=== PATIENT | male | born 1955 | race Caucasian/White ===

== ENCOUNTER 2020-12-24 08:16 | Outpatient (REF) | payer MEDICARE, SELFPAY ==
[2020-12-24 11:02] LABS: MANUAL DIFF FLAG NO
[2020-12-24 11:13] LABS: Glucose Urine UA NEG (NEG); Leukocyte Esterase Urine NEG (NEG); Nitrite Urine NEG (NEG); PH 6.5 (5.0-8.0); Specific Gravity - Urine 1.025 (1.005-1.025); Urine Blood NEG (NEG); Urine Ketones NEG (NEG); Urine Protein NEG (NEG-TRACE)
[2020-12-24 11:14] LABS: Basophils Absolute Auto 0.1 X10*3/uL (0.0-0.2); Eosinophils Absolute Auto 0.2 X10*3/uL (0.0-0.4); Eosinophils Percent Auto 2.9 % (0-4); Hematocrit 45.5 % (42-52); Hemoglobin 16.1 g/dl (14.0-18.0); Imm Gran Abs Auto 0.02 X10*3/uL (0.00-0.03); Imm Gran Pct Auto 0.3 % (0.0-0.4); Lymphocytes Absolute Auto 1.3 X10*3/uL (1.2-4.9); Lymphocytes Percent Auto 21.9 % (20-40); Mean Corpuscular HGB Conc 35.4 g/dl (31.0-36.0); Mean Corpuscular Hemoglobin 33.3 pg (27.0-33.0); Mean Platelet Volume 11.1 fL (9.4-12.4); Monocytes Absolute Auto 0.5 X10*3/uL (0.1-1.2); Monocytes Percent Auto 8.9 % (2-11); Neutrophils Absolute Auto 3.8 X10*3/uL (2.0-8.3); Platelet Count 225 X10*3/uL (160-400); Red Blood Count 4.84 X10*6/uL (4.60-5.80); Red Cell Distribution Width 11.7 % (11.0-16.0); White Blood Count 5.9 X10*3/uL (4.8-10.8)
[2020-12-24 11:15] LABS: Appearance Urine CLEAR; Color Urine YELLOW
[2020-12-24 11:33] LABS: Alanine Aminotransferase 29 U/L (0-40); Albumin Level 4.8 g/dL (3.5-5.0); Alkaline Phosphatase 41 U/L (39-117); Anion Gap 16 (12-20); Aspartate Amino Transferase 33 U/L (5-37); Bilirubin Total 1.2 mg/dL (0.0-1.0); Blood Urea Nitrogen 14 mg/dL (9-16); Calcium 9.7 mg/dL (8.4-10.2); Carbon Dioxide 25 mmol/L (22-29); Chloride 102 mmol/L (96-108); Cholesterol 238 mg/dL; Estimated Glomerular Filt Rate > 60; Glucose Fasting 109 mg/dL (60-99); HDL Cholesterol 68 mg/dL; LDL Cholesterol Calculated 146 mg/dl; Potassium 4.4 mmol/L (3.3-5.1); Sodium 139 mmol/L (135-145); Total Protein 7.5 g/dL (6.5-8.0); Triglycerides 124 mg/dL
== END 2020-12-24 08:17 | disposition home or self-care (01) ==
LOC: HO.HMGCLDS 08:16
PROVIDERS: PCP Internal Medicine; Visit Provider Internal Medicine
DX: E78.00 Pure hypercholesterolemia, unspecified (principal); I10 Essential (primary) hypertension
CPT/HCPCS: 36415; 80053; 80061; 81003; 85025

== ENCOUNTER 2021-04-16 07:59 | Outpatient (REF) | payer MEDICARE, SELFPAY ==
[2021-04-16 11:38] LABS: Estimated Average Glucose 97 mg/dL
[2021-04-16 12:04] LABS: Alanine Aminotransferase 24 U/L (0-40); Albumin Level 4.5 g/dL (3.5-5.0); Alkaline Phosphatase 41 U/L (39-117); Anion Gap 14 (12-20); Aspartate Amino Transferase 34 U/L (5-37); Bilirubin Total 1.2 mg/dL (0.0-1.0); Blood Urea Nitrogen 16 mg/dL (9-16); Calcium 9.4 mg/dL (8.4-10.2); Carbon Dioxide 24 mmol/L (22-29); Chloride 104 mmol/L (96-108); Cholesterol 208 mg/dL; Estimated Glomerular Filt Rate > 60; Glucose Fasting 94 mg/dL (60-99); HDL Cholesterol 63 mg/dL; LDL Cholesterol Calculated 130 mg/dl; Potassium 4.2 mmol/L (3.3-5.1); Sodium 138 mmol/L (135-145); Total Protein 6.9 g/dL (6.5-8.0); Triglycerides 78 mg/dL
== END 2021-04-16 08:00 | disposition home or self-care (01) ==
LOC: HO.HMGCLDS 07:59
PROVIDERS: PCP Internal Medicine; Visit Provider Internal Medicine
DX: E78.00 Pure hypercholesterolemia, unspecified (principal); I10 Essential (primary) hypertension; R73.03 Prediabetes
CPT/HCPCS: 36415; 80053; 80061; 83036

== ENCOUNTER 2021-06-19 08:14 | Outpatient (REF) | payer MEDICARE, SELFPAY ==
[2021-06-19 11:05] LABS: PSA,Total (Free>4and<10) 2.92 ng/mL (0.00-4.00)
== END 2021-06-19 08:15 | disposition home or self-care (01) ==
LOC: HO.10HDL 08:14
PROVIDERS: Visit Provider Urology
DX: Z12.5 Encounter for screening for malignant neoplasm of prostate (principal); R97.20 Elevated prostate specific antigen [PSA]
CPT/HCPCS: 36415; 84153

== ENCOUNTER → 2021-06-25 08:28 | Outpatient (BNVA) | payer MEDICARE, SELFPAY | PROVIDERS: PCP Internal Medicine; Visit Provider Urology | DX: R97.20 Elevated prostate specific antigen [PSA] (principal); N40.0 Benign prostatic hyperplasia without lower urinary tract symptoms | CPT/HCPCS: Q3014 ==

== ENCOUNTER 2022-06-17 09:36 | Outpatient (REF) | payer MEDICARE, SELFPAY ==
[2022-06-17 12:36] LABS: Prostate Specific Antigen 2.57 ng/mL (<0.05-4.0)
== END 2022-06-17 09:37 | disposition home or self-care (01) ==
LOC: HO.HMGCLDS 09:36
PROVIDERS: PCP Internal Medicine; Visit Provider Urology
DX: Z12.5 Encounter for screening for malignant neoplasm of prostate (principal); N40.1 Benign prostatic hyperplasia with lower urinary tract symptoms; N13.8 Other obstructive and reflux uropathy
CPT/HCPCS: 36415; 84153

== ENCOUNTER → 2022-06-25 08:34 | Outpatient (BNVA) | payer MEDICARE, SELFPAY | PROVIDERS: PCP Internal Medicine; Visit Provider Urology | DX: R97.20 Elevated prostate specific antigen [PSA] (principal); N40.1 Benign prostatic hyperplasia with lower urinary tract symptoms; N13.8 Other obstructive and reflux uropathy | CPT/HCPCS: 51798; 99212 ==

== ENCOUNTER 2022-08-04 08:53 | Outpatient (REF) | payer MEDICARE, SELFPAY ==
[2022-08-04 11:22] LABS: MANUAL DIFF FLAG NO
[2022-08-04 11:27] LABS: Basophils Absolute Auto 0.1 X10*3/uL (0.0-0.2); Basophils Percent Auto 1.3 % (0-2); Eosinophils Absolute Auto 0.1 X10*3/uL (0.0-0.4); Eosinophils Percent Auto 2.4 % (0-4); Hematocrit 44.2 % (42.0-52.0); Hemoglobin 15.5 g/dl (14.0-18.0); Imm Gran Abs Auto 0.02 X10*3/uL (0.00-0.03); Imm Gran Pct Auto 0.4 % (0.0-0.4); Lymphocytes Absolute Auto 1.1 X10*3/uL (1.2-4.9); Lymphocytes Percent Auto 21.1 % (20-40); Mean Corpuscular HGB Conc 35.1 g/dl (31.0-36.0); Mean Corpuscular Hemoglobin 33.1 pg (27.0-33.0); Mean Corpuscular Volume 94.4 fL (80.0-98.0); Mean Platelet Volume 10.8 fL (9.4-12.4); Monocytes Absolute Auto 0.5 X10*3/uL (0.1-1.2); Monocytes Percent Auto 9.5 % (2-11); Neutrophils Absolute Auto 3.5 x10*3/uL (2.0-8.3); Neutrophils Percent Auto 65.3 % (45-73); Platelet Count 209 X10*3/uL (160-400); Red Blood Count 4.68 X10*6/uL (4.60-5.80); White Blood Count 5.4 X10*3/uL (4.8-10.8)
[2022-08-04 12:28] LABS: Alanine Aminotransferase 27 U/L (0-40); Albumin Level 4.7 g/dL (3.5-5.0); Alkaline Phosphatase 40 U/L (39-117); Anion Gap 18 (12-20); Aspartate Amino Transferase 35 U/L (5-37); Bilirubin Total 1.1 mg/dL (0.0-1.0); Blood Urea Nitrogen 14 mg/dL (9-16); Calcium 9.6 mg/dL (8.4-10.2); Carbon Dioxide 23 mmol/L (22-29); Chloride 103 mmol/L (96-108); Cholesterol 212 mg/dL; Estimated Glomerular Filt Rate > 60; Glucose Fasting 96 mg/dL (60-99); HDL Cholesterol 66 mg/dL; LDL Cholesterol Calculated 131 mg/dl; Potassium 4.4 mmol/L (3.3-5.1); Sodium 140 mmol/L (135-145); Total Protein 7.3 g/dL (6.5-8.0); Triglycerides 76 mg/dL
== END 2022-08-04 08:54 | disposition home or self-care (01) ==
LOC: HO.HMGCLDS 08:53
PROVIDERS: PCP Internal Medicine; Visit Provider Internal Medicine
DX: I10 Essential (primary) hypertension (principal); E78.00 Pure hypercholesterolemia, unspecified; N40.0 Benign prostatic hyperplasia without lower urinary tract symptoms
CPT/HCPCS: 36415; 80053; 80061; 85025

== ENCOUNTER 2023-06-10 08:48 | Outpatient (REF) | payer MEDICARE, SELFPAY ==
[2023-06-10 12:59] LABS: Prostate Specific Antigen 2.75 ng/mL (<0.05-4.0)
== END 2023-06-10 08:49 | disposition home or self-care (01) ==
LOC: HO.HMGCLDS 08:48
PROVIDERS: PCP Internal Medicine; Visit Provider Urology
DX: Z12.5 Encounter for screening for malignant neoplasm of prostate (principal); R97.20 Elevated prostate specific antigen [PSA]
CPT/HCPCS: 36415; 84153

== ENCOUNTER 2023-06-24 08:31 | Outpatient (AMB) | payer MEDICARE, SELFPAY ==
--- NOTE | 2023-06-24 08:38 | A.OFFVIS_ITS ---
Intake Intake Visit Reasons: 1Y PSA(set) Intake Note: Patient is Present for Follow Up PSA/PVR Urology Medication: None Antibiotic Allergies: None Blood Thinners: None Pharmacy:[facility] PVR:42ML Allergies No Known Allergies Allergy (Verified 06/24/23 08:40) HPI HPI Comments History of Present Illness Details Good is a pleasant male. He is a patient of Dr. Harden. He is seen for the following urologic conditions - elevated PSA PSA stable - 2.7 PVR minimal 42 MILO 2+ smooth Will follow p.r.n. 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 follow-up [facility] Medical History HTN (hypertension) Elevated PSA BPH loc w urin obs/LUTS Surgical History History of surgery Review of Systems Const Denies chills and Denies fever(s) Card Reports no additional complaints and Denies syncope Resp Denies cough GI Denies abdominal pain and Denies heartburn Reports as per HPI and Denies change in libido Neuro Denies syncope Psych Denies change in libido Endo Denies change in libido Physical Exam Const General: cooperative, healthy appearing, comfortable and no acute distress Orientation/consciousness: patient oriented x3 HEENT Face and sinus: Yes normal facial exam Mouth: moist mucous membranes Neck Neck: Yes normal visual inspection, Yes full ROM and Yes trachea midline Chest Chest palpation & inspection: normal inspection of the chest Resp Effort & Inspection: normal respiratory effort, able to speak in complete sentences and no respiratory distress GI Inspection: Yes normal to inspection Back/Spine/Pelvis Cervical Spine: normal cervical lordosis Thoracic/Lumbar Spine: thoracic and lumbar spine normal to inspection Skin General skin exam: no rashes or lesions noted Neuro General: patient oriented x3, gait normal, tone normal and moves all extremities Extrem General: Yes normal to inspection and Yes capillary refill normal Office Procedures Post Void Residual Post Residual Void Post Void Residual (PVR): 42 20415-Srva Void Residual by ultrasound Assessment & Plan Assessment & Plan (1) BPH loc w urin obs/LUTS: Code(s): N40.1 - Benign prostatic hyperplasia with lower urinary tract symptoms (2) Elevated PSA: Code(s): R97.20 - Elevated prostate specific antigen [PSA] Plan P.r.n. follow-up Orders: Orders AMB Post Void Residual by ultrasound Today N40.1 - Benign prostatic hyperplasia with lower urinary tract symptoms Patient Instructions: Imaging studies, laboratory and physical exam results were discussed and reviewed in detail. No major barriers to patient understanding were identified. An opportunity to ask questions regarding the treatment plan was provided. All questions were answered. The patient expressed understanding and agreement with the above treatment plan. The patient is aware they should contact our office by phone for worsening of their current condition or the appearance of new urologic symptoms. Compliance is encouraged with any medications and followup testing that is ordered. It is a privilege to participate in the urologic care of your patient. If you have any questions or concerns regarding treatment for the above conditions, or other urologic issues, please do not hesitate to contact me. The office telephone contact is [phone]. This note is constructed using voice recognition software. While every effort has been made to ensure accuracy accounting office manager errors may have been included. Yours sincerely, Dr Andrea Omalley MD, [facility] - Urology Providers of Expert, Compassionate Care for the Genitourinary System Coding Level of Care Code Est Pt Level 4 (41401) Diagnoses BPH loc w urin obs/LUTS N40.1 Elevated PSA R97.20 CPT Codes Post Residual Void - PVR CPT Code: 88996-Ijae Void Residual by ultrasound ([id number])
== END 2023-06-24 09:20 | disposition home or self-care (01) ==
PROVIDERS: PCP Internal Medicine; Visit Provider Urology
DX: N40.1 Benign prostatic hyperplasia with lower urinary tract symptoms (principal); R97.20 Elevated prostate specific antigen [PSA]
CPT/HCPCS: 99214

== ENCOUNTER → 2023-06-24 08:31 | Outpatient (BNVA) | payer MEDICARE, SELFPAY | PROVIDERS: Visit Provider Urology | DX: N40.1 Benign prostatic hyperplasia with lower urinary tract symptoms (principal); R97.20 Elevated prostate specific antigen [PSA] | CPT/HCPCS: 51798; 99212 ==

== ENCOUNTER 2023-07-01 08:36 | Outpatient (REF) | payer MEDICARE, SELFPAY ==
[2023-07-01 11:26] LABS: MANUAL DIFF FLAG NO
[2023-07-01 11:39] LABS: Basophils Absolute Auto 0.1 X10*3/uL (0.0-0.2); Basophils Percent Auto 1.3 % (0-2); Eosinophils Absolute Auto 0.2 X10*3/uL (0.0-0.4); Eosinophils Percent Auto 3.8 % (0-4); Hemoglobin 15.4 g/dl (14.0-18.0); Imm Gran Abs Auto 0.02 X10*3/uL (0.00-0.03); Imm Gran Pct Auto 0.4 % (0.0-0.4); Lymphocytes Absolute Auto 1.1 X10*3/uL (1.2-4.9); Lymphocytes Percent Auto 19.9 % (20-40); Mean Corpuscular Hemoglobin 33.3 pg (27.0-33.0); Mean Platelet Volume 10.8 fL (9.4-12.4); Monocytes Absolute Auto 0.4 X10*3/uL (0.1-1.2); Monocytes Percent Auto 7.4 % (2-11); Neutrophils Absolute Auto 3.7 x10*3/uL (2.0-8.3); Neutrophils Percent Auto 67.2 % (45-73); Platelet Count 208 X10*3/uL (160-400); Red Blood Count 4.63 X10*6/uL (4.60-5.80); Red Cell Distribution Width 12.2 % (11.0-16.0); White Blood Count 5.5 X10*3/uL (4.8-10.8)
[2023-07-01 12:08] LABS: Alanine Aminotransferase 21 U/L (0-40); Albumin Level 4.5 g/dL (3.5-5.0); Alkaline Phosphatase 41 U/L (39-117); Anion Gap 12 (12-20); Aspartate Amino Transferase 33 U/L (5-37); Bilirubin Total 0.8 mg/dL (0.0-1.0); Blood Urea Nitrogen 13 mg/dL (9-16); Calcium 9.6 mg/dL (8.4-10.2); Carbon Dioxide 26 mmol/L (22-29); Chloride 105 mmol/L (96-108); Cholesterol 198 mg/dL (<200); Estimated Glomerular Filt Rate > 60; Glucose Random 94 mg/dL (60-115); HDL Cholesterol 69 mg/dL (>40); LDL Cholesterol Calculated 114 mg/dL (<100); Potassium 4.9 mmol/L (3.3-5.1); Sodium 138 mmol/L (135-145); Total Protein 7.4 g/dL (6.5-8.0); Triglycerides 77 mg/dL (<150)
== END 2023-07-01 08:37 | disposition home or self-care (01) ==
LOC: HO.CHCLDS 08:36
PROVIDERS: Visit Provider Internal Medicine
DX: I10 Essential (primary) hypertension (principal); E78.00 Pure hypercholesterolemia, unspecified; R35.1 Nocturia; Z12.5 Encounter for screening for malignant neoplasm of prostate
CPT/HCPCS: 36415; 80053; 80061; 84153; 85025

== ENCOUNTER 2023-07-21 07:55 | Day surgery (SDC) | payer MEDICARE, SELFPAY ==
[2023-07-17 10:38] VITALS: BMI 26.8
--- NOTE | 2023-07-20 09:22 | P.CONAN_ITS ---
Documented by User: Jaleesa Armijo NP 07/20/23 09:23 HPI - Anesthesia Eval Consult details Narrative: 68yo M for Colonoscopy PMFSH Active Problems Active Problems: All Active Problems (Updated 06/25/21 @ 08:45 by Andrea Omalley MD) Elevated PSA (Acute) BPH loc w urin obs/LUTS (Acute) Past Medical History Medical History HTN (hypertension) Elevated PSA BPH loc w urin obs/LUTS Surgical History Surgical History Hx of Achilles tendon repair H/O colonoscopy History of surgery Social History Social History Patient Tobacco Use Status: Former Tobacco user Quit Date: >10 years ago Tobacco use type: Cigarette Advance Directives: No Advance Directives Information Provided: Yes Meds Allergies Allergy/AdvReac Type Severity Reaction Status Date / Time No Known Allergies Allergy Verified 06/24/23 08:40 Home Medications Medication Instructions Recorded Confirmed Last Taken Type lisinopril 10 mg tablet 10 mg PO DAILY 06/25/21 07/17/23 Unknown History nifedipine 30 mg tablet,extended 30 mg PO DAILY 06/23/22 07/17/23 Unknown History release 24 hr cholecalciferol (vitamin D3) 25 25 mcg PO DAILY 07/17/23 07/17/23 Unknown History mcg (1,000 unit) capsule (Vitamin D3) Exam Exam Date and Time: July 20, 2023 0922 Height,Weight and Vital Signs: Height 5 ft 10 in Weight 84.822 kg Pertinent Lab Results Pertinent Lab Results: Laboratory Tests 07/01/23 07/01/23 07/01/23 08:45 08:48 08:48 WBC 5.5 Hgb 15.4 Hct 44.0 Plt Count 208 Sodium 138 Potassium 4.9 Chloride 105 Carbon Dioxide 26 BUN 13 Creatinine 0.94 Assessment and Plan Assessment Anesthesia Assessment: Chart Reviewed Documented by User: Janny Ace MD 07/21/23 09:05 PMFSH Active Problems Active Problems: All Active Problems (Updated 07/21/23 @ 08:08 by Janny Ace MD) Elevated PSA (Acute) BPH loc w urin obs/LUTS (Acute) HTN Denies STEVE symptoms Past Medical History Medical History HTN (hypertension) Elevated PSA BPH loc w urin obs/LUTS Family History Family history of problems with anesthesia: No Surgical History Surgical History Hx of Achilles tendon repair H/O colonoscopy History of surgery History of Problems with Anesthesia: No Social History Social History Patient Tobacco Use Status: Former Tobacco user Quit Date: >10 years ago Tobacco use type: Cigarette Advance Directives: No Advance Directives Information Provided: Yes Meds Allergies Allergy/AdvReac Type Severity Reaction Status Date / Time No Known Allergies Allergy Verified 06/24/23 08:40 Home Medications Medication Instructions Recorded Confirmed Last Taken Type lisinopril 10 mg tablet 10 mg PO DAILY 06/25/21 07/17/23 Unknown History nifedipine 30 mg tablet,extended 30 mg PO DAILY 06/23/22 07/17/23 Unknown History release 24 hr cholecalciferol (vitamin D3) 25 25 mcg PO DAILY 07/17/23 07/17/23 Unknown History mcg (1,000 unit) capsule (Vitamin D3) Exam Height,Weight and Vital Signs: Height 5 ft 10 in Weight 84.822 kg Vital Signs Temp Pulse Resp BP Pulse Ox O2 Del Method 07/21/23 08:21 97.3 F 66 18 166/92 H 98 Room Air Airway Mallampati Class: II TM Dist: >3cm Neck ROM: Full Loose/Missing/Broken Teeth: No (Crowns/caps intact. Denies broken, loose, jumana ng teeth) Heart: RRR Lungs: CTAB Assessment and Plan Assessment Anesthesia Assessment: Anesthesia Plan Discussed Final Anesthetic Review Family History of Problems with Anesthesia: No History of Problems with Anesthesia: No NPO: Yes ASA Class: II Final Preanesthetic Review: No Changes in Pt Med Stat, Meds/Allgs Chart Reviewed, Consent Obtained/Reviewed and Anes Risks/Benef Reviewed Patient Risk: Low Procedure Risk: Low Assessment/Block/Sedation in SS: Assess/Block/Sedation-SS Anesthetic Plan Anesthetic Plan: MAC: Disposition: Standard PACU
[2023-07-21 08:21] VITALS: BP 166/92; PULSE 66; RESP 18; TEMP 36.3; O2SAT 98
[2023-07-21] MEDS: Lactated Ringers 1,000 ML 100 ML IVCONT (08:26)
--- NOTE | 2023-07-21 08:35 | MHC.SHP ---
Pre-Procedural Eval Section A Date of Service: 07/21/23 Section B Chief Complaint: Encounter for screening for malignant neoplasm Details of Present Illness: see H&P Relevant Family History (Specify if Yes): Yes Relevant Social History: Alcohol Use Present Medications: see Short Stay Collaborative assessment Medical History: No relevant PMH History of Previous Operations: No relevant previous surgery Allergies: Allergies Allergy/AdvReac Type Severity Reaction Status Date / Time No Known Allergies Allergy Verified 06/24/23 08:40 Review of Systems Sugical H&P ROS: Negative: Constitution, Cardiovascular, Respiratory, Neurological, Psychiatric, Hem-Onc, Allergic/Immunologic, Gastrointestinal, Genitourinary, Musculoskeletal, Integumentary, Endocrine and Eyes/Ears/Nose/Throat Exam Surgical H&P Exam: Normal: HEENT, Normal: Heart, Normal: Lungs, Normal: Extremities, Normal: Abdomen, Normal: Skin and Normal: Neurological Plan Diagnosis/Plan: Unchanged I have reviewed the history and physical and performed a pertinent physical examination on my patient. No changes have occurred unless specified. Time Spent With Patient Time: Total time managing care of this patient today ____ minutes.
--- NOTE | 2023-07-21 09:11 | PM.OP ---
Brief Operative Note Date of Service: 07/21/23 Pre-op diagnosis: screening Post-op diagnosis: same Procedure: colonoscopy Surgeon: Martin Hernandez MD Anesthesia: MAC Was an Engineer Third Assistant used for this Procedure?: No Estimated blood loss (mL): 5 Pathology: other Condition: stable Disposition: PACU
[2023-07-21 09:15] VITALS: BP 107/74; PULSE 77; RESP 16; TEMP 36.6
[2023-07-21 09:34] VITALS: BP 148/66; PULSE 62; RESP 16; TEMP 36.6; O2SAT 100
--- NOTE | 2023-07-21 09:35 | OP_ITS ---
DATE OF SERVICE: 07/21/2023 SURGEON: Martin Hernandez MD INDICATIONS: Colon cancer screening and family history of colon cancer. PREOPERATIVE DIAGNOSIS: POSTOPERATIVE DIAGNOSIS: PROCEDURE PERFORMED: Colonoscopy to the terminal ileum with snare polypectomy and biopsy. ESTIMATED BLOOD LOSS: COMPLICATIONS: ANESTHESIA: Monitored anesthesia care. ASSISTANTS: SPECIMENS: DESCRIPTION OF PROCEDURE: A history and physical performed. The risks and benefits of the procedure were explained to the patient. Informed consent was obtained. The patient was placed in the left lateral decubitus position. A digital rectal exam was performed and was found to be normal. The Olympus pediatric video colonoscope was introduced into the rectum and advanced to the cecum. The cecum was identified by transillumination, palpation, and identification of ileocecal valve. Examination was performed. The scope was removed. He tolerated the procedure well and was taken to recovery room in stable condition. FINDINGS: The terminal ileum was examined and appeared normal. The visualized colonic mucosa was normal. The quality of prep was good. Three polyps were identified and removed with a combination of snare and biopsy forceps. All were less than 10 mm. These were located at the appendiceal orifice at 55 cm and at 40 cm. There was mild sigmoid diverticulosis. Retroflexed examination showed moderate-sized internal hemorrhoids. IMPRESSION: Colon polyps. RECOMMENDATION: Follow up the biopsy results. MD SEVEN Cortez/YUMIKO / [id number]
== END 2023-07-21 10:24 | disposition home or self-care (01) ==
PROVIDERS: PCP Internal Medicine; Visit Provider Internal Medicine Gastroenterology
PROC: 0DJD8ZZ Inspection of Lower Intestinal Tract, Via Natural or Artificial Opening Endoscopic (ICD-10-PCS; CPT 45378; principal; 2023-07-21 09:00)
DX: Z12.11 Encounter for screening for malignant neoplasm of colon (principal); D12.5 Benign neoplasm of sigmoid colon; K63.5 Polyp of colon; K57.30 Diverticulosis of large intestine without perforation or abscess without bleeding; K64.8 Other hemorrhoids; Z86.010 Personal history of colon polyps; Z80.0 Family history of malignant neoplasm of digestive organs; I10 Essential (primary) hypertension; N40.1 Benign prostatic hyperplasia with lower urinary tract symptoms
CPT/HCPCS: 45380; 45385; 88305

== ENCOUNTER 2024-08-23 08:18 | Outpatient (REF) | payer MEDICARE, SELFPAY ==
[2024-08-23 09:58] LABS: MANUAL DIFF FLAG NO
[2024-08-23 10:06] LABS: Basophils Absolute Auto 0.1 X10*3/uL (0.0-0.2); Eosinophils Absolute Auto 0.2 X10*3/uL (0.0-0.4); Eosinophils Percent Auto 3.5 % (0-4); Hemoglobin 15.1 g/dl (14.0-18.0); Imm Gran Abs Auto 0.02 X10*3/uL (0.00-0.03); Imm Gran Pct Auto 0.3 % (0.0-0.4); Lymphocytes Absolute Auto 1.3 X10*3/uL (1.2-4.9); Mean Corpuscular HGB Conc 35.1 g/dl (31.0-36.0); Mean Corpuscular Hemoglobin 33.1 pg (27.0-33.0); Mean Corpuscular Volume 94.3 fL (80.0-98.0); Monocytes Absolute Auto 0.5 X10*3/uL (0.1-1.2); Monocytes Percent Auto 8.9 % (2-11); Neutrophils Absolute Auto 3.7 x10*3/uL (2.0-8.3); Neutrophils Percent Auto 64.3 % (45-73); Platelet Count 202 X10*3/uL (160-400); Red Blood Count 4.56 X10*6/uL (4.60-5.80); White Blood Count 5.8 X10*3/uL (4.8-10.8)
[2024-08-23 10:30] LABS: Alanine Aminotransferase 28 U/L (0-40); Albumin Level 4.4 g/dL (3.5-5.0); Alkaline Phosphatase 44 U/L (39-117); Anion Gap 12 (12-20); Aspartate Amino Transferase 35 U/L (5-37); Bilirubin Total 0.8 mg/dL (0.0-1.0); Blood Urea Nitrogen 15 mg/dL (9-16); Calcium 9.5 mg/dL (8.4-10.2); Carbon Dioxide 27 mmol/L (22-29); Chloride 105 mmol/L (96-108); Cholesterol 205 mg/dL (<200); Estimated Glomerular Filt Rate > 60; Glucose Fasting 109 mg/dL (60-99); HDL Cholesterol 64 mg/dL (>40); LDL Cholesterol Calculated 124 mg/dL (<100); Potassium 4.5 mmol/L (3.3-5.1); Sodium 139 mmol/L (135-145); Total Protein 7.2 g/dL (6.5-8.0); Triglycerides 88 mg/dL (<150)
[2024-08-23 10:40] LABS: Prostate Specific Antigen 3.07 ng/mL (<0.05-4.0)
== END 2024-08-23 08:19 | disposition home or self-care (01) ==
LOC: HO.HMGCLDS 08:18
PROVIDERS: PCP Internal Medicine; Visit Provider Internal Medicine
DX: I10 Essential (primary) hypertension (principal); Z12.5 Encounter for screening for malignant neoplasm of prostate; R23.3 Spontaneous ecchymoses; E78.00 Pure hypercholesterolemia, unspecified
CPT/HCPCS: 36415; 80053; 80061; 84153; 85025

== ENCOUNTER 2024-11-19 10:02 | Outpatient (REF) | payer MEDICARE, SELFPAY ==
--- OUTSIDE RECORDS SUMMARY | 2024-11-19 10:05 | XMS_ITS ---
Author Organization [facility] Address [address] [place] [id number] Care Team Providers Care Shell Trim Tool Setter Name Role Phone Giuseppe Harden MD Primary Care Provider Martin Santiago Jr Unavailable ALLERGIES No Known Allergies REASON FOR VISIT Patient presents today for a recall colonoscopy MEDICATIONS Medication SIG (Take, Route, Frequency, Duration) Notes Start Date End Date Status Vitamin D3 1000 UNIT 1 capsule Orally On ce a day Active Lisinopril 20 MG 1 tablet Orally Once a day Active NIFEdipine ER 30 MG 1 tablet on an empty stomach Orally Once a day for 30 day(s) Active MiraLax (colon prep) 17 GM/SCOOP mixed with Gatorade or Crystal Light Orally begin at 5:00 p.m. the day before the procedure for 1 day 06/08/2023 Active PROBLEMS Problem Type ICD Code Onset Dates Problem Status W/U Status Risk SNOMED Code Notes Problem Family history of colon cancer (Z80.0) Active confirmed 931181178 Problem Personal history of colonic polyps (Z86.010) Active confirmed 590037971 VITAL SIGNS BMI 26.89 kg/m2 06/08/2023 Blood pressure systolic 000 mm Hg 06/08/20 23 Blood pressure diastolic 00 mm Hg 023 Height 70 in 06/08/2023 Temperature 98.7 degrees Fahrenheit 06/08/20 23 Weight 187.4 lbs 06/08/2023 Encounters Encounter Location Date Provider Diagnosis [facility] [address] [place] [phone] 06/08/2023 Martin Hernandez Jr Colon cancer screening Z12.11 ; Family history of colon cancer Z80.0 and Personal history of colonic polyps Z86.010 ASSESSMENTS Encounter Date Diagnosis Assessment Notes Treatment Notes Treatment Clinical Notes 06/08/2023 Colon cancer screening (ICD-10 - Z12.11) Colonoscopy material was printed 06/08/2023 Family history of colon cancer (ICD-10 - Z80.0) 06/08/2023 Personal history of colonic polyps (ICD-10 - Z86.010) PLAN OF TREATMENT Medication Medication Name Sig Start Date Stop Date Notes MiraLax (colon prep) 17 GM/SCOOP mixed with Gatorade or Crystal Light Orally begin at 5:00 p.m. the day before the procedure for 1 day 06/08/2023 Treatment Notes Assessment Notes Colon cancer screening Colonoscopy mater ial was printed Future Test Test Name Order Date COLONOSCOPY 06/08/2023 Next Appt Details Follow Up: prn, Reason: Progress Notes * Examination Category Sub-Category Detail Notes General Examination GENERAL APPEARANCE: in no ac moriah distress HEAD: normocephalic EYES: sclera non-icteric NECK/THYROID: no lymphadenopathy HEART: S1, S2 normal, no mu rmurs CHEST: normal shape and exp ansion LUNGS: clear to auscultatio n bilaterally ABDOMEN: soft, nontender, non distended, bowel sounds present, no organomegaly SKIN: anicteric EXTREMITIES: no clubbing, cyanosi s, or edema PSYCH: cognitive function i ntact ORAL CAVITY: mucosa moist
--- OUTSIDE RECORDS SUMMARY | 2024-11-19 10:06 | XMS_ITS ---
Author Organization [facility] Address [address] [place] [address] Care Team Providers Care Hospitality Aide Name Role Phone Giuseppe Harden MD Primary Care Provider UnavailMartin Fontana Jr Unavailable [phone] REASON FOR VISIT screening,fam hx colon ca Encounters Encounter Location Date Provider Diagnosis [facility] Outpatient [address] [place] [phone] 07/21/2023 Martin Hernandez Jr Encounter for screening colonoscopy Z12.11 ; Family history of colon cancer Z80.0 and Colon polyps K63.5 ASSESSMENTS Encounter Date Diagnosis Assessment Notes Treatment Notes Treatment Clinical Notes 07/21/2023 Encounter for screening colonoscopy (ICD-10 - Z12.11) 07/21/2023 Family history of colon cancer (ICD-10 - Z80.0) 07/21/2023 Colon polyps (ICD-10 - K63.5) PLAN OF TREATMENT No Information
--- OUTSIDE RECORDS SUMMARY | 2024-11-19 10:06 | XMS_ITS ---
Author Organization [facility] Address [address] [place] [phone] Care Team Providers Care Tie In Hand Name Role Phone Giuseppe Hadren MD Primary Care Provider UnavailMartin Fontana Jr REASON FOR VISIT pathology Encounters Encounter Location Date Provider Diagnosis [facility] [address] [place] [phone] 07/23/2023 Martin Hernandez Jr PLAN OF TREATMENT No Information
[2024-11-19 11:40] LABS: Estimated Average Glucose 97 mg/dL; Hemoglobin A1C 119.2734 umol/L; Total Hemoglobin (HGBA1C) 3868.0973 umol/L
[2024-11-19 11:44] LABS: Anion Gap 12 (12-20); Blood Urea Nitrogen 18 mg/dL (9-16); Calcium 9.9 mg/dL (8.4-10.2); Carbon Dioxide 26 mmol/L (22-29); Chloride 105 mmol/L (96-108); Estimated Glomerular Filt Rate > 60; Glucose Random 76 mg/dL (60-115); Potassium 4.5 mmol/L (3.3-5.1); Sodium 138 mmol/L (135-145)
== END 2024-11-19 10:03 | disposition home or self-care (01) ==
LOC: HO.HMGCLDS 10:02
PROVIDERS: PCP Internal Medicine; Visit Provider Internal Medicine
DX: I10 Essential (primary) hypertension (principal); Z13.1 Encounter for screening for diabetes mellitus
CPT/HCPCS: 36415; 80048; 83036

== ENCOUNTER 2025-02-28 08:01 | Outpatient (AMB) | payer MEDICARE, SELFPAY ==
--- NOTE | 2025-02-28 08:02 | MHC.OFFWIV ---
Intake Vital Signs 02/28/25 08:03 Height 5 ft 10 in Weight 185 lb 8 oz BMI 26.6 BP 134/82 Blood Pressure Location Lt brachial Position Sitting Pulse 99 Pulse Source Pulse Oximeter Temp 99.0 F Temp Source Oral Pulse Oximetry (%) 97 Oxygen Delivery Method Room Air Intake Visit Reasons: EP-neck & chest rash Intake Note: Pt presents to the office today for a rash on his neck and chest x4 days. Pt states it is itchy. Patient Tobacco Use Status: Former Tobacco user Allergies No Known Allergies Allergy (Verified 02/28/25 08:05) HPI HPI Comments History of Present Illness Details History of Present Illness The patient is a 70-year-old male presenting with a rash and itching. Symptoms began over the weekend following outdoor activity, specifically mowing grass, suggesting exposure to irritant plants such as poison milton or poison oak. The rash is described as crusty and bumpy, primarily located on the chest and neck. Attempts to alleviate symptoms using vzcy-xze-oibmsiu treatments have been ineffective. The patient reports that the discomfort is tolerable, but it becomes bothersome, particularly at night. There are no associated symptoms such as fever, chills, or respiratory distress, focusing the differential diagnosis on contact dermatitis. He denies CP, SOB, sore throat, joint pain, n/v/d. He denies new foods, lotions, soaps, detergents, medications, pets, or travel. Physical Exam General: Cooperative, healthy appearing, comfortable, no acute distress and well developed Neck: Normal ROM Respiratory: Normal respiratory effort and able to speak in complete sentences. Clear to auscultation bilaterally Cardiovascular: Regular rate and rhythm. Normal S1 and S2 Skin: Rash present on the neck and chest. Raised, non-tender, crusty clusters noted all over the posterior neck and anterior and posterior chest Patient was informed and verbally consented to the use of an ambient scribe for clinic note documentation during this visit. [facility] Medical History HTN (hypertension) Elevated PSA BPH loc w urin obs/LUTS Surgical History Hx of Achilles tendon repair H/O colonoscopy History of surgery Social History Patient Tobacco Use Status: Former Tobacco user Tobacco use type: Cigarette Review of Systems Const All systems reviewed & are unremarkable except as noted in HPI and below Physical Exam Vital Signs: Last Vital Signs Temp 99.0 F 02/28/25 08:03 Pulse 99 02/28/25 08:03 BP 134/82 02/28/25 08:03 Pulse Ox 97 02/28/25 08:03 Oxygen Delivery Method Room Air 02/28/25 08:03 BMI result Body Mass Index 26.6 Assessment & Plan Assessment & Plan (1) Rash: Code(s): R21 - Rash and other nonspecific skin eruption Plan Most likely poison milton vs poison oak vs contact dermatitis vs allergic reaction Plan The focus will be on managing the contact dermatitis likely caused by poison milton or oak. The treatment regimen includes a course of oral prednisone to manage inflammation and a topical cream for symptomatic control. I have advised adjunctive measures such as calamine lotion and oatmeal baths to help soothe the skin. The patient will obtain these medications at a nearby pharmacy promptly. Instructions were clear regarding sun protection due to possible photosensitivity from skin irritants. Medications: New prednisone see taper instructions 10 mg PO DIRECTED 1 packet 0RF betamethasone dipropionate 0.05% 1 appl topical DAILY 14 days PRN 45 grams 0RF skin irritation Coding Level of Care Code Est Pt Level 3 (28400) Diagnoses Rash R21
[2025-02-28 08:03] VITALS: BP 134/82; PULSE 99; TEMP 37.2; O2SAT 97; BMI 26.6
--- OUTSIDE RECORDS SUMMARY | 2025-02-28 08:04 | XMS_ITS | Patient Health Record ---
Author Organization [facility] Address [address] [place] [phone] Care Team Providers Care Glass Washer And Carrier Name Role Phone Giuseppe Harden MD Primary Care Provider Martin Santiago Jr Unavailable [phone] Allergies No Known Allergies Reason For Referral No Information Medications Medication SIG (Take, Route, Frequency, Duration) Notes [...] the procedure for 1 day 06/08/2023 Active Immunizations Vaccine Route Administration Date Status Comme nts Influenza Unknown 06/11/2022 Administered Problems Problem Type SNOMED Code ICD Code Onset Dates Problem Status W/U Status Risk Notes Problem 484947373 Colon cancer screening (Z12.11) Active confirmed Problem 243055253 Personal history of colonic polyps (Z86.010) Active confirmed Problem 90856515 Encounter for other preprocedural examination (Z01.818) Active confirmed Problem 938516854 Family history o f colon cancer (Z80.0) Active confirmed Plan Of Treatment Future Test Test Name Order Date COLONOSCOPY 11/24/2012 COLONOSCOPY 01/06/2018 COLONOSCOPY 06/08/2023 Insurance Providers Payer Name Payer Address Payer Phone Subscriber Number Group Number Insured Name Patient Relationship to Insured Coverage Start Date Coverage End Date MEDICARE OF [place] [address] [place] [address] [phone] [id number] HPOEBE TAMIKAHENRY Self - patient is the insured [employer] ATT[employer] CLAIMS [address] [place] [address] [id number] TAMIKA SANDHUNIS Self - patient is the insured Medical (General) History Medical History History ICD Code Colonoscopy 06/15, tubular adenoma, five- year followup for family history Zenker diverticulum, 3 mm, on upper GI s eries 10/02 hypertension Hyperlipidemia Surgical History Surgery Date(Month/Year) achilles tendon repair
== END 2025-02-28 08:32 | disposition home or self-care (01) ==
PROVIDERS: PCP Internal Medicine; Visit Provider Physician Assistant Medical
DX: R21 Rash and other nonspecific skin eruption (principal)

== ENCOUNTER → 2025-02-28 08:01 | Outpatient (BNVA) | payer MEDICARE, SELFPAY | PROVIDERS: PCP Internal Medicine; Visit Provider Physician Assistant Medical | DX: R21 Rash and other nonspecific skin eruption (principal) | CPT/HCPCS: 99212 ==

== ENCOUNTER 2025-03-17 09:32 | Outpatient (AMB) | payer MEDICARE, SELFPAY ==
--- NOTE | 2025-03-17 09:09 | MHC.PC.OV ---
Vital Signs 03/17/25 09:10 Height 5 ft 10 in Weight 183 lb BMI 26.3 BP 130/70 Blood Pressure Location Rt brachial Position Sitting Pulse 93 Pulse Source Pulse Oximeter Temp 97.2 F Temp Source Axillary Pulse Oximetry (%) 99 Oxygen Delivery Method Room Air Intake Visit Reasons: Routine Licensed Psychologist Director Required: No Accompanied by: Self / Same As Patient Allergies No Known Allergies Allergy (Verified 03/17/25 09:10) Tobacco use date assessed: 03/17/25 Fall risk assessment: No Falls in past year Last assessed Fall Risk: 03/17/25 Dental Screening Dental Screen Date: 03/17/25 Did you have a dental visit in the last 12 months?: Yes Did you have a dental problem in the last 6 months where you did not have access to dental care?: No HPI HPI Comments History of Present Illness Details 70 year old male with a past medical history of hypertension, prediabetes, BPH, colon polyps, back pain presenting for follow up CV: on lisinopril, nifedipine. BP 130/70. Denies chest pain, exertional dyspnea Recent urgent care for poison milton 02/28. prescribed prednisone but never received. Using steroid cream and is finally resolving Colonoscopy 06/2023-5 year ROS CONSTITUTIONAL: Denies weight loss, fever and chills. HEENT: Denies changes in vision and hearing. RESPIRATORY: Denies SOB and cough. CV: Denies palpitations and CP GI: Denies abdominal pain, nausea, vomiting and diarrhea. : Denies dysuria and urinary frequency. MSK: Denies new myalgia and joint pain. SKIN: Denies rash and pruritus. NEUROLOGICAL: Denies headache PSYCHIATRIC: Denies recent changes in mood. PHYSICAL EXAM: GENERAL: Alert and oriented x 3. NAD EYES: EOMI. Anicteric. HENT: Moist mucous membranes. No scleral icterus. No cervical lymphadenopathy. LUNGS: Clear to auscultation bilaterally. CARDIOVASCULAR: Regular rate and rhythm. No murmur. No JVD. ABDOMEN: Soft, non-tender +bs EXTREMITIES: No edema. Non-tender. SKIN: No rashes or lesions. Warm. NEUROLOGIC: No focal neurological deficits. CN II-XII grossly intact PSYCHIATRIC: Cooperative. Appropriate mood and affect [facility] Medical History HTN (hypertension) Elevated PSA BPH loc w urin obs/LUTS Surgical History Hx of Achilles tendon repair H/O colonoscopy (~07/21/23) History of surgery Family History (Updated 03/17/25 @ 09:39 by Joanne Mcnally MA) Mother No problems noted. Father No problems noted. Social History Housing: House Patient Tobacco Use Status: Former Tobacco user Tobacco use type: Cigarette e-Cigarette/Vaping Use: Currently Using service: No Current occupational status: retired Cognitive needs: No Hearing needs: No Vision needs: No Questionnaire PHQ-9 Over the last 2 weeks, how often have you been bothered by any of the following problems? 1. Little interest or pleasure in doing things: not at all 2. Feeling down, depressed, or hopeless: not at all 3. Trouble falling or staying asleep, or sleeping too much: not at all 4. Feeling tired or having little energy: not at all 5. Poor appetite or overeating: not at all 6. Feeling bad about yourself - or that you are a failure or have let yourself or your family down: not at all 7. Trouble concentrating on things, such as reading the newspaper or watching television: not at all 8. Moving or speaking so slowly that other people could have noticed. Or the opposite - being so fidgety or restless that you have been moving around a lot more than usual: not at all 9. Thoughts that you would be better off or of hurting yourself in some way: not at all Total score: 0 Source: Developed by Drs. Raj Okeefe, Fiorella Herbert, Roly Pathak and colleagues, with an educational kian from [employer]. Thrive Questionnaire Date Thrive assessed: 03/17/25 I am a: Patient Within the past 12 months, did the food you bought not last and you didn't have the money to get more?: Never true Within the past 12 months, did you worry whether your food would run out before you got money to buy more?: Never true Do you have trouble paying for medicines?: No Do you have trouble getting transportation to medical appointments?: No Do you have trouble paying your heating and electricity bill?: No Do you have trouble taking care of your child, family member or friend?: No Do you have trouble with day-to-day activities such as bathing, preparing meals, shopping, managing finances, etc.?: No Are you currently unemployed and looking for a job?: No Are you interested in more education?: No THRIVE Score: 0 AUDIT C Alcohol Use Questionnaire (AUDIT-C) 1. How often do you have a drink containing alcohol?: Monthly or less 2. How many drinks containing alcohol do you have on a typical day when you are drinking?: 1 or 2 3. How often do you have six or more drinks on one occasion?: Less than monthly Total Score: 2 JODIE-7 AMB Questionnaire JODIE-7 Date JODIE - 7 assessed: 03/17/25 Feeling nervous, anxious, or on edge: 0 = Not at all Not being able to stop or control worryin = Not at all Worrying too much about different things: 0 = Not at all Trouble relaxin = Not at all Being so restless that it is hard to sit still: 0 = Not at all Becoming easily annoyed or irritable: 0 = Not at all Feeling afraid as if something awful might happen: 0 = Not at all Total JODIE-7 score (0-4 normal; 5-9 mild; 10-14 moderate; 15-21 severe): 0 Source: Developed by Drs. Raj Okeefe, Fiorella Herbert, Roly Pathak and colleagues, with an educational kian from [employer]. Physical exam (Primary Care) Vital Signs: Last Vital Signs Temp 97.2 F 03/17/25 09:10 Pulse 93 03/17/25 09:10 BP 130/70 03/17/25 09:10 Pulse Ox 99 03/17/25 09:10 Oxygen Delivery Method Room Air 03/17/25 09:10 BMI result Body Mass Index 26.3 Tobacco/Smoking Status: Tobacco use Status Tobacco use date assessed 03/17/25 03/17/25 09:11 Patient Tobacco Use Status Former Tobacco user 03/17/25 09:11 Tobacco use type Cigarette 03/17/25 09:11 e-Cigarette/Vaping Use Currently Using 03/17/25 09:11 PHQ-9: PHQ-9 Score PHQ-9: Total score 0 03/17/25 09:39 Thrive Assessment: Date of Thrive Assessment Date Thrive assessed 03/17/25 03/17/25 09:11 Coding Level of Care Code Est Pt Level 4 (83060) Diagnoses Primary hypertension I10 Hypertension type: primary hypertension Other hyperlipidemia E78.49 Hyperlipidemia type: other hyperlipidemia Assessment & Plan Assessment & Plan (1) HTN (hypertension): Code(s): I10 - Essential (primary) hypertension Category: Medical Qualifiers: Hypertension type: primary hypertension Qualified Code(s): I10 - Essential (primary) hypertension (2) Hyperlipidemia: Code(s): E78.5 - Hyperlipidemia, unspecified Category: Medical Qualifiers: Hyperlipidemia type: other hyperlipidemia Qualified Code(s): E78.49 - Other hyperlipidemia Plan 70 year old male for follow up past medical, surgical, social reviewed htn-stable on current medicaitons Poison milton is resolved Labs and follow up Orders: Orders Complete Blood Count Auto Diff 5 Months E78.5 - Hyperlipidemia, unspecified, I10 - Essential (primary) hypertension, R73.09 - Other abnormal glucose, R97.20 - Elevated prostate specific antigen [PSA] Comprehensive Met. Panel 5 Months E78.5 - Hyperlipidemia, unspecified, I10 - Essential (primary) hypertension, R73.09 - Other abnormal glucose, R97.20 - Elevated prostate specific antigen [PSA] Lipid Panel 5 Months E78.5 - Hyperlipidemia, unspecified, I10 - Essential (primary) hypertension, R73.09 - Other abnormal glucose, R97.20 - Elevated prostate specific antigen [PSA] Hemoglobin A1c 5 Months E78.5 - Hyperlipidemia, unspecified, I10 - Essential (primary) hypertension, R73.09 - Other abnormal glucose, R97.20 - Elevated prostate specific antigen [PSA] Prostate Specific Antigen 5 Months E78.5 - Hyperlipidemia, unspecified, I10 - Essential (primary) hypertension, R73.09 - Other abnormal glucose, R97.20 - Elevated prostate specific antigen [PSA] Vitamin D 25-OH (D2 and D3) 5 Months R79.89 - Other specified abnormal findings of blood chemistry Medications: Discontinued prednisone see taper instructions Discontinued Reason: Doctor's Order 10 mg PO DIRECTED 1 packet 0RF
[2025-03-17 09:10] VITALS: BP 130/70; PULSE 93; TEMP 36.2; O2SAT 99; BMI 26.3
--- OUTSIDE RECORDS SUMMARY | 2025-03-17 09:48 | XMS_ITS | Patient Health Record ---
Author Organization [facility] Address [address] [place] [id number] Care Team Providers Care Spot Cleaner Name Role Phone Giuseppe Harden MD Primary Care Provider Martin Santiago Jr Unavailable Allergies No Known Allergies Reason For Referral [...] Problem Status W/U Status Risk Notes Problem 695527653 Colon cancer screening (Z12.11) Active confirmed Problem [id number] Personal history of colonic polyps (Z86.010) Active confirmed Problem [id number] Encounter for other preprocedural examination (Z01.818) Active confirmed Problem 684400509 Family history o f colon cancer (Z80.0) Active confirmed Plan Of Treatment Future Test Test Name Order Date COLONOSCOPY 11/24/2012 COLONOSCOPY 01/06/2018 COLONOSCOPY 06/08/2023 Insurance Providers Payer Name Payer Address Payer Phone Subscriber Number Group Number Insured Name Patient Relationship to Insured Coverage Start Date Coverage End Date MEDICARE OF [place] [address] [place] [address] [phone] [id number] PHOEBE TAMIKAHENRY Self - patient is the insured [employer] CLAIMS [address] [place] [address] [phone] [id number] TAMIKA SANDHUNIS Self - patient is the insured Medical (General) History Medical History History ICD Code Colonoscopy 06/15, tubular adenoma, five- year followup for family history Zenker diverticulum, 3 mm, on upper GI s eries 10/02 hypertension Hyperlipidemia Surgical History Surgery Date(Month/Year) achilles tendon repair
== END 2025-03-17 10:04 | disposition home or self-care (01) ==
LOC: HO.HMCHD 09:33
PROVIDERS: PCP Internal Medicine; Visit Provider Internal Medicine
DX: I10 Essential (primary) hypertension (principal); E78.49 Other hyperlipidemia

== ENCOUNTER → 2025-03-17 09:32 | Outpatient (BNVA) | payer MEDICARE, SELFPAY | PROVIDERS: PCP Internal Medicine; Visit Provider Internal Medicine | DX: I10 Essential (primary) hypertension (principal); E78.49 Other hyperlipidemia; Z79.899 Other long term (current) drug therapy; Z13.30 Encounter for screening examination for mental health and behavioral disorders, unspecified | CPT/HCPCS: 96127; 99212 ==

== ENCOUNTER 2025-09-05 08:25 | Outpatient (REF) | payer MEDICARE, SELFPAY ==
[2025-09-05 10:46] LABS: MANUAL DIFF FLAG NO
[2025-09-05 10:57] LABS: Hematocrit 43.5 % (42.0-52.0); Hemoglobin 15.3 g/dl (14.0-18.0); Imm Gran Abs Auto 0.02 X10*3/uL (0.00-0.03); Imm Gran Pct Auto 0.4 % (0.0-0.4); Lymphocytes Absolute Auto 1.2 X10*3/uL (1.2-4.9); Mean Corpuscular HGB Conc 35.2 g/dl (31.0-36.0); Mean Corpuscular Hemoglobin 33.4 pg (27.0-33.0); Mean Corpuscular Volume 95.0 fL (80.0-98.0); NRBC Abs Auto 0.000 X10*3/uL (0.0-0.012); NRBC Pct Auto 0.0 /100WBC (0.0-0.2); Platelet Count 232 X10*3/uL (160-400); Red Blood Count 4.58 X10*6/uL (4.60-5.80); White Blood Count 5.4 X10*3/uL (4.8-10.8)
[2025-09-05 11:27] LABS: Alanine Aminotransferase 25 U/L (0-40); Albumin Level 4.7 g/dL (3.5-5.0); Alkaline Phosphatase 40 U/L (39-117); Anion Gap 13 (12-20); Aspartate Amino Transferase 41 U/L (5-37); Blood Urea Nitrogen 18 mg/dL (9-16); Calcium 9.8 mg/dL (8.4-10.2); Carbon Dioxide 26 mmol/L (22-29); Chloride 107 mmol/L (96-108); Cholesterol 217 mg/dL (<200); Estimated Glomerular Filt Rate > 60; HDL Cholesterol 74 mg/dL (>40); Potassium 5.0 mmol/L (3.3-5.1); Sodium 141 mmol/L (135-145); Total Protein 7.3 g/dL (6.5-8.0); Triglycerides 62 mg/dL (<150)
[2025-09-05 11:56] LABS: Prostate Specific Antigen 3.54 ng/mL (<0.05-4.0)
== END 2025-09-05 08:26 | disposition home or self-care (01) ==
LOC: HO.HMGCLDS 08:25
PROVIDERS: PCP Student in an Organized Health Care Education/Training Program; Visit Provider Internal Medicine
DX: Z12.5 Encounter for screening for malignant neoplasm of prostate (principal); R97.20 Elevated prostate specific antigen [PSA]; Z13.21 Encounter for screening for nutritional disorder; I10 Essential (primary) hypertension; E78.5 Hyperlipidemia, unspecified; R73.09 Other abnormal glucose; R79.89 Other specified abnormal findings of blood chemistry
CPT/HCPCS: 36415; 80053; 80061; 82306; 83036; 84153; 85025

== ENCOUNTER 2025-09-14 09:12 | Outpatient (AMB) | payer MEDICARE, SELFPAY ==
--- NOTE | 2025-09-14 09:19 | MHC.PC.OV ---
Vital Signs 09/14/25 09:20 Height 5 ft 10 in Weight 184 lb BMI 26.4 BP 132/74 Blood Pressure Location Rt brachial Position Sitting Pulse 90 Pulse Source Pulse Oximeter Temp 97 F Temp Source Temporal Artery Scan Pulse Oximetry (%) 99 Oxygen Delivery Method Room Air Intake Visit Reasons: 6 Month F/U Doper Operator Required: No Accompanied by: Self / Same As Patient Allergies No Known Allergies Allergy (Verified 09/14/25 09:20) Medication List - Last Reconciled 09/14/25 by Papi Parks MD cholecalciferol (vitamin D3) (Vitamin D3) 25 mcg PO DAILY lisinopril 10 mg PO DAILY nifedipine ER 30 mg PO DAILY Tobacco use date assessed: 09/14/25 Fall risk assessment: No Falls in past year Last assessed Fall Risk: 09/14/25 Dental Screening Dental Screen Date: 09/14/25 Did you have a dental visit in the last 12 months?: Yes Did you have a dental problem in the last 6 months where you did not have access to dental care?: No HPI HPI Comments History of Present Illness Details History of Present Illness The patient is a 70 year old male presenting with an annual physical examination and follow-up visit. He reports feeling well and is very active, participating in skiing. He has no acute concerns and denies chest pain or shortness of breath. He has a history of hypertension managed with lisinopril 10 mg and nifedipine 30 mg. The patient also takes a vitamin D supplement. Recent lab work showed hyperlipidemia, with a total cholesterol of 217 and an LDL cholesterol of 131. His good cholesterol (HDL) was 74. He notes that his LDL cholesterol has historically been elevated, with past values of 130, 146, and 156. He believes his diet contributes to his high cholesterol. The patient has a remote history of smoking, having quit 32 years ago. He is up to date on his colonoscopies, with the next one due when he is 73. Medical History: - Hypertension - Hyperlipidemia - History of tobacco use, quit 32 years ago Medications: - Lisinopril 10 mg for hypertension - Nifedipine 30 mg for hypertension - Vitamin D supplement Diagnostic Results: - Labs (from 9 days ago): - CBC: Blood counts were noted to be good. - Comprehensive Metabolic Panel: Kidney function and electrolytes are normal. - PSA: 3.54, which is normal. - Vitamin D: Level is normal. - Lipid Panel: Total cholesterol 217 (high), LDL 131 (high), HDL 74. Social History - Substance Use: He has a remote history of smoking, having quit 32 years ago. - Exercise: The patient is physically active and enjoys skiing, including downhill and cross-country. - Diet: Acknowledges that his diet, which includes butter, likely contributes to his high cholesterol. PFSH Medical History HTN (hypertension) Elevated PSA BPH loc w urin obs/LUTS Surgical History Hx of Achilles tendon repair H/O colonoscopy (~07/21/23) History of surgery Family History (Updated 09/14/25 @ 09:25 by Joanne Mcnally MA) Mother No problems noted. Father No problems noted. Social History Housing: House Patient Tobacco Use Status: Former Tobacco user Tobacco use type: Cigarette e-Cigarette/Vaping Use: Currently Using service: No Current occupational status: retired Cognitive needs: No Hearing needs: No Vision needs: No Questionnaire PHQ-9 Over the last 2 weeks, how often have you been bothered by any of the following problems? 1. Little interest or pleasure in doing things: not at all 2. Feeling down, depressed, or hopeless: not at all 3. Trouble falling or staying asleep, or sleeping too much: not at all 4. Feeling tired or having little energy: not at all 5. Poor appetite or overeating: not at all 6. Feeling bad about yourself - or that you are a failure or have let yourself or your family down: not at all 7. Trouble concentrating on things, such as reading the newspaper or watching television: not at all 8. Moving or speaking so slowly that other people could have noticed. Or the opposite - being so fidgety or restless that you have been moving around a lot more than usual: not at all 9. Thoughts that you would be better off or of hurting yourself in some way: not at all Total score: 0 Depression Screening Interpretation: Negative Depression Screening Done: Yes Source: Developed by Fiorella Escamilla.W. Keon, Roly Pathak and colleagues, with an educational kian from [employer]. Thrive Questionnaire Date Thrive assessed: 09/14/25 I am a: Patient Within the past 12 months, did the food you bought not last and you didn't have the money to get more?: Never true Within the past 12 months, did you worry whether your food would run out before you got money to buy more?: Never true Do you have trouble paying for medicines?: No Do you have trouble getting transportation to medical appointments?: No Do you have trouble paying your heating and electricity bill?: No Do you have trouble taking care of your child, family member or friend?: No Do you have trouble with day-to-day activities such as bathing, preparing meals, shopping, managing finances, etc.?: No Are you currently unemployed and looking for a job?: No Are you interested in more education?: No THRIVE Score: 0 AUDIT C Alcohol Use Questionnaire (AUDIT-C) 1. How often do you have a drink containing alcohol?: Monthly or less 2. How many drinks containing alcohol do you have on a typical day when you are drinking?: 1 or 2 3. How often do you have six or more drinks on one occasion?: Less than monthly Total Score: 2 JODIE-7 AMB Questionnaire JODIE-7 Date JODIE - 7 assessed: 09/14/25 Feeling nervous, anxious, or on edge: 0 = Not at all Not being able to stop or control worryin = Not at all Worrying too much about different things: 0 = Not at all Trouble relaxin = Not at all Being so restless that it is hard to sit still: 0 = Not at all Becoming easily annoyed or irritable: 0 = Not at all Feeling afraid as if something awful might happen: 0 = Not at all Total JODIE-7 score (0-4 normal; 5-9 mild; 10-14 moderate; 15-21 severe): 0 Source: Developed by Drs. Raj Okeefe, Fiorella Herbert, Roly Pathak and colleagues, with an educational kian from [employer]. Review of Systems Narrative Review of Systems - General: Reports feeling 100% and denies any acute concerns. - Cardiovascular: Denies chest pain. - Respiratory: Denies shortness of breath. - Gastrointestinal: Reports normal bowel movements. - Genitourinary: Reports normal urination. All systems reviewed & are unremarkable except as reviewed in HPI and above Physical exam (Primary Care) Vital Signs: Last Vital Signs Temp 97 F 09/14/25 09:20 Pulse 90 09/14/25 09:20 BP 132/74 09/14/25 09:20 Pulse Ox 99 09/14/25 09:20 Oxygen Delivery Method Room Air 09/14/25 09:20 BMI result Body Mass Index 26.4 Tobacco/Smoking Status: Tobacco use Status Tobacco use date assessed 09/14/25 09/14/25 09:26 Patient Tobacco Use Status Former Tobacco user 09/14/25 09:26 Tobacco use type Cigarette 09/14/25 09:26 e-Cigarette/Vaping Use Currently Using 09/14/25 09:26 PHQ-9: PHQ-9 Score PHQ-9: Total score 0 09/14/25 09:26 Depression Screening Interpretation: Negative Thrive Assessment: Date of Thrive Assessment Date Thrive assessed 09/14/25 09/14/25 09:26 Narrative Physical Exam General: Alert and oriented, Well nourished, No acute distress. Eye: Pupils are equal, round and reactive to light, Intact accommodation, Extraocular movements are intact, Normal conjunctiva, Vision unchanged. HENT: Normocephalic, Atraumatic, Tympanic membranes are clear, Normal hearing, Oral mucosa is moist, No pharyngeal erythema, Ear canals patent. Respiratory: Lungs CTA bilaterally, No wheeze, Respirations are non-labored. Cardiovascular: Regular rate, Regular rhythm, S1 auscultated, S2 auscultated, No murmur, Good pulses equal in all extremities, Normal peripheral perfusion, No edema. Gastrointestinal: Soft, Non-tender, Non-distended, Normal bowel sounds, No organomegaly. Musculoskeletal: Normal range of motion, Normal strength, No tenderness, No swelling, No deformity, Normal gait. Integumentary: Warm, Dry, [place], Intact. Neurologic: Alert, Oriented, Normal sensory, Normal motor function, No focal defects, Cranial Nerves II-XII are grossly intact, Normal deep tendon reflexes. Psychiatric: Cooperative, Appropriate mood & affect, Normal judgment. Coding Level of Care Code Est Pt Level 4 (96982) Diagnoses Primary hypertension I10 Hypertension type: primary hypertension Other hyperlipidemia E78.49 Hyperlipidemia type: other hyperlipidemia Assessment & Plan Assessment & Plan (1) HTN (hypertension): Comment: - The patient's blood pressure is well-controlled on his current medications, lisinopril 10 mg and nifedipine 30 mg. His prescriptions will be refilled, and he will continue the current regimen. Code(s): I10 - Essential (primary) hypertension Category: Medical Qualifiers: Hypertension type: primary hypertension Qualified Code(s): I10 - Essential (primary) hypertension (2) Hyperlipidemia: Comment: - The patient's 10-year cardiovascular risk score is 22.2%, which is high. - A high-intensity statin was recommended due to this risk, his age, and history of hypertension. - The benefits, including reduced risk of stroke and heart attack, along with potential side effects like muscle pain and fatigue, were discussed. - The patient opted to defer statin therapy for 6 months to attempt dietary modification, including reducing his intake of fats, processed foods, butter, oils, and red meat. - The plan is to repeat a lipid panel in six months prior to his follow-up visit. Code(s): E78.5 - Hyperlipidemia, unspecified Category: Medical Qualifiers: Hyperlipidemia type: other hyperlipidemia Qualified Code(s): E78.49 - Other hyperlipidemia Plan: Health Maintenance: - Cardiovascular Disease Risk: 10-year ASCVD risk was calculated to be 22.2%, placing him in a high-risk category. - Lipid Management: Discussion was held regarding initiating statin therapy. The patient has opted to defer treatment for 6 months in favor of attempting dietary modification. He was counseled to reduce intake of fats, processed foods, butter, and red meat. - Cancer Screening: The patient is up-to-date on colonoscopies, with the next one due at age 73. He does not meet criteria for lung cancer screening. - Immunizations: Received an influenza vaccine during the visit. - Lifestyle: He is physically active (skiing) and was encouraged to continue his level of exercise. - Follow-up: Scheduled for 6 months to re-evaluate his lipid profile. Patient was informed and verbally consented to the use of an ambient scribe for clinic note documentation during this visit. Plan I discussed the patient's recent lab results, highlighting his hyperlipidemia with an LDL of 131. I calculated his 10-year cardiovascular risk to be 22.2%, based on the [place] [employer] and [place] [employer] guidelines, which is greater than the 7.5% threshold for recommending a high-intensity statin. I explained the significant benefits of statins in reducing the risk of heart attacks and strokes, and also discussed potential side effects such as muscle pain and fatigue, noting they can be minimized by taking the medication at night. The patient expressed a preference to first attempt to lower his cholesterol through dietary modifications over the next six months. We agreed to this plan, and I counseled him on reducing fats, processed foods, butter, and red meat in his diet. I confirmed his hypertension is well-controlled and refilled his medications. We reviewed his health maintenance, confirmed he is up-to-date on colonoscopies, and he received an influenza vaccine during the visit. I instructed him to complete a repeat lipid panel one week before his follow-up appointment in six months. Orders: Orders Lipid Panel 6 Months E78.49 - Other hyperlipidemia Medications: New lisinopril 10 mg PO DAILY 90 tabs 1RF Refilled nifedipine ER 30 mg PO DAILY 90 tabs 1RF Patient Instructions: - Your blood pressure is well controlled. Continue taking Lisinopril 10 mg and Nifedipine 30 mg as prescribed. We have sent refills to your pharmacy. - Your recent blood work shows that your bad cholesterol (LDL) is high at 131. - Because of your cholesterol, age, and blood pressure, your risk of having a heart attack or stroke in the next 10 years is about 22%. - We discussed starting a cholesterol-lowering medication called a statin, but you have decided to wait 6 months and try to lower it with diet changes first. - For your diet, try to reduce your intake of fats, processed foods, butter, oils, and red meat. - Continue your regular exercise, such as skiing. - You received your annual flu shot during today's visit. - Please go to the lab to have your blood drawn for a cholesterol check about one week before your next appointment. - Please schedule a follow-up appointment in 6 months.
[2025-09-14 09:20] VITALS: BP 132/74; PULSE 90; TEMP 36.1; O2SAT 99; BMI 26.4
--- OUTSIDE RECORDS SUMMARY | 2025-09-14 10:22 | XMS_ITS | Patient Health Record ---
Author Organization [facility] Address [address] [place] [id number] Care Team Providers Care Moisture Conditioner Operator Name Role Phone Fina (RETIRED) Giuseppe FORTE Primary Care Provide r Martin Easley Jr Unavailable Allergies No Known Allergies Reason For Referral No Information Medications Medication SIG (Take, Route, Frequency, Duration) Notes Start Date End Date Status Vitamin D3 1000 UNIT Capsule 1 capsule Orally Once a day Active Lisinopril 20 MG Tablet 1 tablet Orally Once a day Active NIFEdipine ER 30 MG Tablet Extended Release 24 Hour 1 tablet on an empty stomach Orally Once a day; Duration: 30 day(s) Active MiraLax (colon prep) 17 GM/SCOOP Powder mixed with Gatorade or Crystal Light Orally begin at 5:00 p.m. 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 Problems Problem Type SNOMED Code ICD Code Onset Dates Problem Status W/U Status Risk Notes Problem Colon cancer screening (629553663) Colon cancer screening (Z12.11) Active confirmed Problem History of polyp of colon (situation) (064589776) Personal history of colonic polyps (Z86.010) Active confirmed Problem Pre-procedure evaluation check (071046531) Encounter for other preprocedural examination (Z01.818) Active confirmed Problem Family History of Cancer of Colon (Situation) (440925186) Family history of colon cancer (Z80.0) Active confirmed Plan Of Treatment Future Test Test Name Order Date COLONOSCOPY 11/24/2012 COLONOSCOPY 01/06/2018 COLONOSCOPY 06/08/2023 Insurance Providers Payer Name Payer Address Payer Phone Subscriber Number Group Number Insured Name Patient Relationship to Insured Coverage Start Date Coverage End Date MEDICARE OF [place] [address] [place] [id number] [id number] HENRY SANDHU Self - patient is the insured [employer] CLAIMS [address] [place] [address] [id number] HENRY SANDHU Self - patient is the insured Medical (General) History Medical History History ICD Code Colonoscopy 06/15, tubular adenoma, five- year followup for family history Zenker diverticulum, 3 mm, on upper GI s eries 10/02 hypertension Hyperlipidemia Surgical History Surgery Date(Month/Year) achilles tendon repair
== END 2025-09-14 09:45 | disposition home or self-care (01) ==
LOC: HO.HMCHD 09:13
PROVIDERS: PCP Student in an Organized Health Care Education/Training Program; Visit Provider Student in an Organized Health Care Education/Training Program
DX: I10 Essential (primary) hypertension (principal); E78.49 Other hyperlipidemia; Z23 Encounter for immunization

== ENCOUNTER → 2025-09-14 09:12 | Outpatient (BNVA) | payer MEDICARE, SELFPAY | PROVIDERS: PCP Internal Medicine; Visit Provider Student in an Organized Health Care Education/Training Program | DX: I10 Essential (primary) hypertension (principal); E78.49 Other hyperlipidemia; Z23 Encounter for immunization; Z13.31 Encounter for screening for depression; Z13.39 Encounter for screening examination for other mental health and behavioral disorders | CPT/HCPCS: 90471; 90662; 96127; 99212 ==